=== PATIENT | female | born 2000 | race Two or more races ===

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

== ENCOUNTER 2020-01-07 22:15 | Emergency (ER) | payer BC ==
[2020-01-07] MEDS ORDERED: NORMAL SALINE 1000 ML 1,000 ML IV ONE (22:21)
--- NOTE | 2020-01-07 22:23 | ER Document Report ---
ED Medical Screen (RME) - General Stated Complaint: ABDOMINAL PAIN Primary Care Provider: MAYRA SANDY FNP-C [Primary Care Provider] - Follow up as needed Notes: Patient is a 19-year-old female with a past medical history significant for prior ovarian cysts who presents to the emergency department with a chief complaint of lower pelvic pain that began about 3 days ago. She states it is gradually getting worse over the past 3 days. Localizes it across the entire lower abdomen but worse on the right pelvic region. States that it is "hard to pee". Denies any burning with urination. Denies any vaginal bleeding or discharge. Denies back pain. No fever. I have treated and performed a rapid initial assessment of this patient. A comprehensive ED assessment and evaluation of the patient, analysis of test results and completion of medical decision making process will be conducted by additional ED providers. PHYSICAL EXAMINATION: GENERAL: Well-appearing, well-nourished and in mild distress. A&Ox4. Answers questions appropriately. TRAVEL OUTSIDE OF THE [place] IN LAST 30 DAYS: No - Related Data Allergies/Adverse Reactions: No Known Allergies Allergy (Verified 10/13/17 14:07) Past Medical History - Past Medical History Cardiac Medical History: Reports: Hx Hypertension - Reports does not take medication Denies: Hx Coronary Artery Disease, Hx Heart Attack Pulmonary Medical History: Denies: Hx Asthma, Hx Bronchitis, Hx COPD, Hx Pneumonia Neurological Medical History: Denies: Hx Cerebrovascular Accident, Hx Seizures Renal/ Medical History: Denies: Hx Peritoneal Dialysis Musculoskeltal Medical History: Denies Hx Arthritis - Immunizations Immunizations up to date: Yes Hx Diphtheria, Pertussis, Tetanus Vaccination: Yes Physical Exam - Vital signs Vitals: Temp Pulse Resp BP Pulse Ox 98.4 F 146 H 16 173/97 H 99 01/07/20 22:18 01/07/20 22:18 01/07/20 22:18 01/07/20 22:18 01/07/20 22:18 Course - Vital Signs Vital signs: Temp Pulse Resp BP Pulse Ox 98.4 F 146 H 16 173/97 H 99 01/07/20 22:18 01/07/20 22:18 01/07/20 22:18 01/07/20 22:18 01/07/20 22:18 Doctor's Discharge - Discharge Referrals: GILBERT,STORMY, MANAGER ASSURANCE-C [Primary Care Provider] - Follow up as needed
--- NOTE | 2020-01-07 22:34 | ER Document Report ---
ED GI/ - General Chief Complaint: Abdominal Pain Stated Complaint: ABDOMINAL PAIN Time Seen by Provider: 01/07/20 22:34 Primary Care Provider: MAYRA SANDY FNP-C [Primary Care Provider] - Follow up as needed SRINIVASAN AJ MD [ACTIVE STAFF] - Follow up as needed AUBREY JAMA MD [ACTIVE STAFF] - Follow up as needed Notes: CHIEF COMPLAINT: Progressively worsening pelvic pain for 3 days HPI: 19-year-old female with prior history of ovarian cyst presenting for generalized pelvic pain more focal in the left pelvis over the last 3 days. Has not had fever nausea vomiting. Denies vaginal bleeding or discharge. States it does not feel like an ovarian cyst. ROS: See HPI - all other systems were reviewed and are otherwise negative Constitutional: no fever or recent illness Eyes: no drainage, no blurred vision ENT: no runny nose, no sore throat Cardiovascular: no chest pain Resp: no SOB, no cough GI: no vomiting, no diarrhea, positive abdominal pain : no dysuria, no vaginal discharge Integumentary: no rash Allergy: no hives Musculoskeletal: no extremity pain or swelling Neurological: no numbness/tingling, no weakness MEDICATIONS: I agree with the patient medications as charted by the RN. ALLERGIES: I agree with the allergies as charted by the RN. PAST MEDICAL HISTORY/PAST SURGICAL HISTORY: Reviewed and agree as charted by RN. SOCIAL HISTORY: Reviewed and agree as charted by RN. FAMILY HISTORY: No significant familial comorbid conditions directly related to patient complaint EXAM: Reviewed vital signs as charted by RN. CONSTITUTIONAL: Alert and oriented and responds appropriately to questions. Well-appearing; well-nourished, moderate distress secondary to discomfort HEAD: Normocephalic; atraumatic EYES: PERRL; Conjunctivae clear, sclerae non-icteric ENT: normal nose; no rhinorrhea; moist mucous membranes; pharynx without lesions noted NECK: Supple without meningismus; non-tender; no cervical lymphadenopathy, no masses CARD: Moderately tachycardic; no murmurs, no clicks, no rubs, no gallops; symmetric distal pulses RESP: Normal chest excursion without splinting or tachypnea; breath sounds clear and equal bilaterally; no wheezes, no rhonchi, no rales, ABD/GI: Normal bowel sounds; non-distended; soft, mild generalized abdominal pain more focal across the pelvis bilaterally and in the suprapubic region, no rebound, no guarding; no palpable organomegaly or masses : 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 External genitalia normal. No skin lesions noted. Pelvic Exam: No active bleeding. No purulent discharge. Cervix appears normal. + CMT. No lesions or masses. Uterus normal size and mildly tender. Right/Left adnexa normal size and moderately tender bilaterally but more tender in the left adnexa. BACK: The back appears normal and is non-tender to palpation, there is no CVA tenderness EXT: Normal ROM in all joints; non-tender to palpation; no cyanosis, no e ffusions, no edema SKIN: Normal color for age and race; warm; dry; good turgor; no acute lesions noted NEURO: Moves all extremities equally; Motor and sensory function intact PSYCH: The patient's mood and manner are appropriate. Grooming and personal hygiene are appropriate. MDM: 19-year-old female with 3 days of pelvic pain without vaginal bleeding. Moderately tachycardic initially with a heart of 146 in triage. Will order pain medication IV fluids, screening labs, pelvic ultrasound to evaluate for torsion, PID, ovarian cyst TRAVEL OUTSIDE OF THE [place] IN LAST 30 DAYS: No - Related Data Allergies/Adverse Reactions: No Known Allergies Allergy (Verified 10/13/17 14:07) Home Medications: BCP Past Medical History - Social History Smoking Status: Never Smoker Family History: Reviewed & Not Pertinent Patient has suicidal ideation: No Patient has homicidal ideation: No - Past Medical History Cardiac Medical History: Reports: Hx Hypertension - Reports does not take medication Denies: Hx Coronary Artery Disease, Hx Heart Attack Pulmonary Medical History: Denies: Hx Asthma, Hx Bronchitis, Hx COPD, Hx Pneumonia Neurological Medical History: Denies: Hx Cerebrovascular Accident, Hx Seizures Renal/ Medical History: Denies: Hx Peritoneal Dialysis Musculoskeletal Medical History: Denies Hx Arthritis - Immunizations Immunizations up to date: Yes Hx Diphtheria, Pertussis, Tetanus Vaccination: Yes Physical Exam - Vital signs Vitals: Temp Pulse Resp BP Pulse Ox 98.4 F 146 H 16 173/97 H 99 01/07/20 22:18 01/07/20 22:18 01/07/20 22:18 01/07/20 22:18 01/07/20 22:18 Course - Re-evaluation Re-evalutation: 01/07/20 23:45 Patient has returned from ultrasound. Patient heart rate still 1 20-1 30. She has not yet received IV fluids will order additional pain medication as she states previous dose of morphine did not seem to help her pain 01/08/20 01:54 Patient ultrasound shows a fibroid uterus, normal vascularity to the ovaries, no ovarian cyst. CT imaging shows a 3.8 cm left ovarian cyst question of partial rupture. Patient is not complaining of significant pain at this time but does have an elevated heart rate of 133. CT did not show evidence of appendicitis or other acute intra-abdominal pathologies at this time. Will give additional hydration and reassess patient. discussed with Dr. Jessica, attending 01/08/20 02:34 Patient remains tachycardic, EKG shows sinus tachycardia with a rate of 129. Patient is consistently 1 30-1 40 on her heart rate. Patient states that she does not specifically know what her heart rate generally runs but states that she does believe it always seems to be fast when she does check it. She does not have a known history of thyroid issues awaiting TSH. She has no chest pain no shortness of breath. Patient leukocytosis likely reactive from her abdominal and pelvic pain. Patient appendix is normal, CT did not show other acute f indings. Ultrasound did not show evidence of torsion. Lower suspicion for PID at this time, did not have significant cervical motion tenderness or discharge. She does likely have vaginitis. 01/08/20 03:38 Will recheck CBC. Patient heart rate now at 117, she states she is feeling slightly better. Have lower suspicion for PID, GC chlamydia are negative. Patient will likely need follow-up with PAINT FACTORY WORKER regarding the ovarian cyst, follow- up with cardiology regarding the tachycardia. 01/08/20 04:59 Patient heart rate varying between 105 and 120. Her TSH is normal. She is more comfortable at this time. Plan to discharge home to follow-up as previously discussed. Leukocytosis has improved 18.7 with only hydration, discussed with attending - Vital Signs Vital signs: Temp Pulse Resp BP Pulse Ox 98.4 F 146 H 20 136/80 H 98 01/08/20 02:24 01/07/20 22:18 01/08/20 04:01 01/08/20 04:01 01/08/20 04:01 - Laboratory Result Diagrams: 01/08/20 03:50 01/07/20 22:49 Laboratory results interpreted by me: 01/07/20 01/07/20 01/07/20 22:45 22:49 22:49 WBC 23.0 H Hgb Hct MCV 79 L MCH 26.6 L Plt Count 451 H Band Neutrophils % 1 L Abs Neuts (Manual) 16.8 H Abs Monocytes (Manual) 1.6 H Absolute Eos (Manual) 0.7 H Sodium 136.6 L Urine Blood SMALL H 01/08/20 03:50 WBC 18.7 H Hgb 11.9 L Hct 35.9 L MCV 78 L MCH 26.1 L Plt Count Band Neutrophils % Abs Neuts (Manual) Abs Monocytes (Manual) Absolute Eos (Manual) Sodium Urine Blood Discharge - Discharge Clinical Impression: Acute pelvic pain, female, Tachycardia, Ovarian cyst, left Vaginitis Qualifiers: Chronicity: acute Qualified Code(s): N76.0 - Acute vaginitis Condition: Stable Disposition: HOME, SELF-CARE Additional Instructions: Take the pain medication as prescribed. Nausea medication as prescribed. Do not drive if taking narcotics. It was noted on your imaging studies today that you have a left ovarian cyst that is likely rupturing, follow-up with [facility] [employer] DEVELOPER for evaluation of this. It was also noted that you were maintaining an elevated heart rate here, your thyroid study was normal but this will need further follow-up and evaluation with cardiology, call for appointment. Sure you hydrate well at home. It was also noted that you have bacterial vaginitis a bacterial vaginal infection take the Flagyl to treat this. Prescriptions: Metronidazole [Flagyl 500 mg Tablet] 500 mg PO BID #14 tablet Oxycodone HCl/Acetaminophen [Percocet 5-325 mg Tablet] 1 tab PO Q4H PRN #15 tablet PRN Reason: Ondansetron [Zofran Odt 4 mg Tablet] 1 - 2 tab PO Q4H PRN #15 tab.rapdis PRN Reason: For Nausea/Vomiting Referrals: MAYRA SANDY FNP-C [Primary Care Provider] - Follow up as needed AUBREY JAMA MD [ACTIVE STAFF] - Follow up as needed SRINIVASAN AJ MD [ACTIVE STAFF] - Follow up as needed
[2020-01-07] MEDS ORDERED: MORPHINE SULFATE 10 MG/ML INJ IV ONE ×2 (22:38→23:45)
[2020-01-07] MEDS ORDERED: ONDANSETRON HCL INJ/PF 4 MG/2 ML SDV IV ONE (22:38)
[2020-01-07 23:20] LABS: HEMATOCRIT 38.9 % (36.0-47.0); HEMOGLOBIN 13.2 g/dL (12.0-15.5); MEAN CORPUSCULAR HEMOGLOBIN 26.6 pg (27.0-33.4); MEAN CORPUSCULAR HGB CONC 33.9 g/dL (32.0-36.0); MEAN CORPUSCULAR VOLUME 79 fl (80-97); PLATELET COUNT 451 10^3/uL (150-450); RED BLOOD COUNT 4.95 10^6/uL (3.72-5.28)
[2020-01-07 23:26] LABS: APPEARANCE,URINE SLIGHTLY-CLOUDY; BILIRUBIN,URINE NEGATIVE (NEGATIVE); COLOR,URINE YELLOW; GLUCOSE, URINE NEGATIVE (NEGATIVE); KETONES,URINE NEGATIVE (NEGATIVE); LEUKOCYTE ESTERASE,URINE NEGATIVE (NEGATIVE); NITRITE,URINE NEGATIVE (NEGATIVE); PROTEIN,URINE NEGATIVE (NEGATIVE); URINE SPECIFIC GRAVITY 1.021; UROBILINOGEN,URINE NEGATIVE mg/dL (<2.0)
[2020-01-07 23:43] LABS: ALBUMIN 4.4 g/dL (3.7-5.6); ALKALINE PHOSPHATASE 86 U/L (50-135); ANION GAP 11 (5-19); ASPARTATE AMINO TRANSFERASE 22 U/L (5-30); BILIRUBIN,TOTAL 0.4 mg/dL (0.2-1.3); BLOOD UREA NITROGEN 13 mg/dL (7-20); CALCIUM 9.2 mg/dL (8.4-10.2); CARBON DIOXIDE 24 mmol/L (22-30); CHLORIDE 102 mmol/L (98-107); GLUCOSE 101 mg/dL (75-110); POTASSIUM 4.3 mmol/L (3.6-5.0); TOTAL PROTEIN 7.6 g/dL (6.3-8.2)
[2020-01-07 23:46] LABS: ABSOLUTE LYMPHOCYTES# (MANUAL) 3.9 10^3/uL (0.5-4.7); ABSOLUTE MONOCYTES # (MANUAL) 1.6 10^3/uL (0.1-1.4); BAND NEUTROPHILS % (MANUAL) 1 % (3-5); BASOPHILS % (MANUAL) 0 % (0-2); EOSINOPHILS % (MANUAL) 3 % (0-6); LYMPHOCYTES % (MANUAL) 17 % (13-45); MONOCYTES % (MANUAL) 7 % (3-13); SEGMENTED NEUTROPHILS % (MAN) 72 % (42-78); TOTAL CELLS COUNTED 100
[2020-01-07 23:48] LABS: ANISOCYTOSIS SLIGHT; HYPOCHROMASIA SLIGHT; PLATELET COMMENT INCREASED
[2020-01-08 00:16] LABS: BACTERIA (WET MOUNT) 3+ BACTERIA SEEN; T.VAGINALIS (WET MOUNT) NO TRICHOMONAS SEEN; WBCS (WET MOUNT) RARE WBCS SEEN; YEAST (WET MOUNT) BUDDING YEAST SEEN
--- NOTE | 2020-01-08 00:39 | RADIOLOGY REPORT (SQ) ---
EXAM DESCRIPTION: US PELVIS TRANSVAGINAL COMPLETED DATE/TME: 01/07/2020 22:22 CLINICAL HISTORY: 19 years Female, pelvic pain, h/o ovarian cyst Comparison:Sep 06 2017 Technique: Transabdominal and transvaginal. LIMITATIONS: None. FINDINGS: 10.5 x 5.8 x 7.6 cm fibroid uterus includes a 4.8 cm subserosal exophytic posterior fundal uterine wall fibroid, 2.6 cm subserosal mildly exophytic posterior uterine fibroid, 3.3 cm cervical length, 0.6 cm endometrial stripe thickness, 2.8-cm right ovary, and 4.2-cm left ovary appear otherwise unremarkable in size, shape, echotexture, and vascularity. No free fluid. IMPRESSION: No acute findings. Fibroid uterus.
--- NOTE | 2020-01-08 01:49 | RADIOLOGY REPORT (SQ) ---
EXAM: CT Abdomen and Pelvis With Intravenous Contrast EXAM DATE/TIME: 01/08/2020 at 1:04 AM CLINICAL HISTORY: The patient is 19 years old and is Female; pelvic pain/leukocytosis TECHNIQUE: Axial computed tomography images of the abdomen and pelvis with intravenous contrast. Sagittal and coronal reformatted images were created and reviewed. Delayed images were obtained. This CT exam was performed using one or more of the following dose reduction techniques: automated exposure control, adjustment of the mA and/or kV according to patient size, and/or use of iterative reconstruction technique. COMPARISON: Pelvic ultrasound from 01/07/2020; CT abdomen pelvis from 09/29/2017 FINDINGS: LUNG BASES: Unremarkable. No mass. No consolidation. ABDOMEN: LIVER: Unremarkable. No obvious mass. GALLBLADDER AND BILE DUCTS: Unremarkable. No calcified stones. No significant biliary ductal dilatation. PANCREAS: Unremarkable. No ductal dilation. No obvious mass. SPLEEN: Unremarkable. No splenomegaly. ADRENALS: Unremarkable. No adrenal nodules or masses identified. KIDNEYS AND URETERS: Unremarkable. No hydronephrosis. No solid renal mass. No renal or ureteral stones. STOMACH AND BOWEL: No evidence of bowel obstruction. No significant bowel wall thickening appreciated. PELVIS: APPENDIX: The appendix is unremarkable. BLADDER: Unremarkable. No obvious mass. REPRODUCTIVE: A fibroid is noted at the left lateral aspect of the uterus near the fundus. This measures 4.6 cm. There is also a left ovarian cyst measuring 3.8 x 2.2, with mild haziness and trace fluid noted adjacent to this cyst. ABDOMEN and PELVIS: INTRAPERITONEAL SPACE: See above. No free air. No obvious abscess. BONES/JOINTS: No acute fracture. No dislocation. SOFT TISSUES: No significant abnormalities in the superficial soft tissues. VASCULATURE: A retroaortic left renal vein is incidentally noted. No abdominal aortic aneurysm. LYMPH NODES: No significant lymph node enlargement. IMPRESSION: 1. Left ovarian cyst measuring 3.8 cm, with mild adjacent stranding and trace free fluid in the left adnexal region. This may be related to recent partial rupture of the cyst. No follow-up imaging is recommended. Reference: J Am Ida Radiol 2013;10:675-681. 2. Uterine fibroid. 3. Normal appendix.
[2020-01-08] MEDS ORDERED: KETOROLAC TROMETHAMINE INJ/PF 30 MG/1 ML SDV IV ONE (01:53)
[2020-01-08] MEDS ORDERED: NORMAL SALINE 1000 ML 1,000 ML IV ONE (01:53)
[2020-01-08 02:33] LABS: CHLAM PCR NOT DETECTED (NOT DETECT)
[2020-01-08] MEDS ORDERED: OXYCODONE-ACETAMINOPHEN 5-325 MG TABLET PO ONE (02:33)
[2020-01-08 03:40] LABS: URINE AMPHETAMINES SCREEN NEGATIVE; URINE BARBITURATES SCREEN NEGATIVE; URINE BENZODIAZEPINES SCREEN NEGATIVE; URINE COCAINE SCREEN NEGATIVE; URINE MARIJUANA (THC) SCREEN NEGATIVE; URINE METHADONE SCREEN NEGATIVE; URINE PHENCYCLIDINE SCREEN NEGATIVE
[2020-01-08 04:21] LABS: HEMATOCRIT 35.9 % (36.0-47.0); HEMOGLOBIN 11.9 g/dL (12.0-15.5); MEAN CORPUSCULAR HEMOGLOBIN 26.1 pg (27.0-33.4); MEAN CORPUSCULAR HGB CONC 33.3 g/dL (32.0-36.0); MEAN CORPUSCULAR VOLUME 78 fl (80-97); PLATELET COUNT 371 10^3/uL (150-450); RED BLOOD COUNT 4.58 10^6/uL (3.72-5.28); RED CELL DISTRIBUTION WIDTH 13.6 % (11.5-14.0); WHITE BLOOD COUNT 18.7 10^3/uL (4.0-10.5)
[2020-01-08] MEDS ORDERED: METRONIDAZOLE 500 MG TABLET PO ONE (05:04)
[2020-01-08 05:52] VITALS: BP 115/64
--- NOTE | 2020-01-08 06:13 | EKG REPORT ---
SEVERITY:- OTHERWISE NORMAL ECG - SINUS TACHYCARDIA : Confirmed by: Colin Zheng MD 08-Jan-2020 06:12:52
== END 2020-01-08 05:52 | disposition home or self-care (01) ==
LOC: ER 22:15
DX: N76.0 Acute vaginitis (principal); N83.202 Unspecified ovarian cyst, left side; R10.2 Pelvic and perineal pain; R00.0 Tachycardia, unspecified; R10.9 Unspecified abdominal pain; I10 Essential (primary) hypertension
CPT/HCPCS: 93005; 96376; 99284; 96361; 96374; 96375; 36415; 87210; 83690; 84443; 85025; 85027; 81025; 80053; 81001; 80307; 87491; 87591; 76830; 93976; 74177; 93010; J1885; J2270; J2405; J7030 ×2

== ENCOUNTER → 2020-06-12 | Outpatient (CLI) | payer BC ==
--- NOTE | 2020-06-12 14:14 | RADIOLOGY REPORT (SQ) ---
EXAM DESCRIPTION: U/S ABDOMEN LIMITED W/O DOP IMAGES COMPLETED DATE/TIME: 06/12/2020 1:59 pm REASON FOR STUDY: R10.9 UNSPECIFIED ABDOMINAL PAIN R10.9 UNSPECIFIED ABDOMINAL PAIN COMPARISON: None. TECHNIQUE: Dynamic and static grayscale images acquired of the abdomen and recorded on PACS. Additio nal selected color Doppler and spectral images recorded. LIMITATIONS: Limited visualization. Poor acoustical window FINDINGS: PANCREAS: No masses. Visualized pancreatic duct normal caliber. LIVER: Normal size Mild fatty infiltration. No focal masses. LIVER VASCULATURE: Normal directional flow of the main portal vein and hepatic veins. GALLBLADDER: No stones. Normal wall thickness. No pericholecystic fluid. ULTRASOUND-DETECTED GEE'S SIGN: Negative. INTRAHEPATIC DUCTS AND COMMON DUCT: CBD and intrahepatic ducts normal caliber. No filling defects. INFERIOR VENA CAVA: Normal flow. AORTA: No aneurysm. RIGHT KIDNEY: Normal size. Normal echogenicity. No solid or suspicious masses. No hydronephros is. No calcifications. PERITONEAL AND RIGHT PLEURAL SPACE: No ascites or effusions. OTHER: No other significant findings. IMPRESSION: Fatty liver. No acute findings. TECHNICAL DOCUMENTATION: JOB ID: [id number] 2010 [employer]- All Rights Reserved Reading location - IP/workstation name: [email or web address]
== END ==
LOC: RAD 13:26
PROVIDERS: ATTEND Internal Medicine
DX: R10.9 Unspecified abdominal pain (principal); K76.0 Fatty (change of) liver, not elsewhere classified
CPT/HCPCS: 76705